=== PATIENT | male | born 1975 | race Caucasian/White ===

== ENCOUNTER → 2018-08-30 08:38 | Outpatient (CLI) | payer OTHER, SELFPAY ==
--- NOTE | 2018-08-30 08:50 | RAD_ITS ---
STUDY: X-RAY CHEST REASON FOR EXAM: Male, 42 years old. Bronchitis, cough. TECHNIQUE: PA and lateral views of the chest. COMPARISON: None. FINDINGS: The lungs are clear and expanded. There is no demonstrated pleural abnormality. Normal size heart. Normal mediastinum and qing. Normal visualized pulmonary arteries. Normal visualized aortic arch and descending thoracic aorta. Normal visualized thoracic spine. Normal visualized ribs, clavicles, and shoulders. There is no demonstrated abnormality of the visualized soft tissue structures of the upper abdomen. RAD/Chest PA and Lateral IMPRESSION: Normal x-ray examination of the chest. Electronically Signed: Issa Somers MD at 10:15 EST , Service support ,
== END ==
PROVIDERS: Family Provider Family Medicine; PCP Family Medicine; Referring Provider Family Medicine; Visit Provider Family Medicine
DX: J40 Bronchitis, not specified as acute or chronic (principal)
CPT/HCPCS: 71046

== ENCOUNTER → 2019-06-19 08:54 | Outpatient (CLI) | payer OTHER, SELFPAY ==
--- NOTE | 2019-06-19 09:03 | RAD_ITS ---
STUDY: X-RAY - ORBITS REASON FOR EXAM: Male, 43 years old. MRI CLEARANCE; -- H/O METAL IN EYES. TECHNIQUE: 2 view(s) of the orbits were obtained. COMPARISON: None. FINDINGS: Normal bilateral orbits without a metallic orbital foreign body. Normal visualized facial bones. Normal paranasal sinuses. The soft tissue structures are unremarkable. RAD/Orbits for Foreign Body IMPRESSION: No demonstrated metallic orbital foreign body. The patient is cleared for an MRI examination. Electronically Signed: Hayden Grimm MD at 10:58 EDT Tel , Service support ,
--- NOTE | 2019-06-19 09:06 | MRI_ITS ---
STUDY: MRI LEFT SHOULDER REASON FOR EXAM: Male, 43 years old. Left shoulder pain, chronic. TECHNIQUE: Standardized fat and water weighted pulse sequences were obtained in all 3 orthogonal planes. COMPARISON: None. FINDINGS: High-grade partial to full-thickness articular surface insertional tear of the posterior supraspinatus and anterior infraspinatus tendons measuring 1.3 cm AP by 0.3 cm transversely. Normal subscapularis tendon. Normal teres minor tendon. Visualized muscles of the rotator cuff are intact. Marrow signal shows no fracture, bone contusion, or osteonecrosis. No joint effusion. Normal biceps labral complex. Normal intracapsular long biceps tendon. Normal labrum. Normal acromioclavicular articulation. There is a Type II morphology (curved), with a neutral orientation. There is no subacromial-subdeltoid bursal fluid. Normal visualized coracohumeral and coracoacromial ligaments. MRI/Upper Ext Joint Only(Routine) IMPRESSION: 1. High-grade partial to full-thickness supraspinatus and infraspinatus tendon tears. Electronically Signed: Connie Jimenez MD at 23:13 EDT Tel , Service support ,
== END ==
PROVIDERS: Family Provider Family Medicine; PCP Family Medicine; Referring Provider Specialist; Visit Provider Specialist
DX: M25.512 Pain in left shoulder (principal); R53.1 Weakness; S46.012A Strain of muscle(s) and tendon(s) of the rotator cuff of left shoulder, initial encounter
CPT/HCPCS: 70030; 73221

== ENCOUNTER → 2020-03-25 | Outpatient (CLI) | payer OTHER, SELFPAY ==
--- NOTE | 2020-03-25 16:38 | CT_ITS ---
STUDY: CT MAXILLOFACIAL SINUSES REASON FOR EXAM: Male, 44 years old. KNOWN POLYPS/CAN''T TASTE OR SMELL X 3 WEEKS RADIATION DOSAGE (If Supplied By Facility): CTDIvol = ( 33.45 ) mGy, DLP = ( 834.91 ) mGycm TECHNIQUE: The patient was scanned in a multi detector CT scanner. High resolution axial imaging was performed without the administration of intravenous contrast material. Sagittal and coronal images were reconstructed. Individualized dose optimization techniques were used for this CT. COMPARISON: None. FINDINGS: FRONTAL SINUSES: Near complete opacification of the frontal sinuses. ETHMOIDAL SINUSES: Near complete opacification of the bilateral ethmoid air cells MAXILLARY SINUSES: Near complete opacification of the maxillary sinuses. Small amount of aeration in the center of the left maxillary sinus. SPHENOIDAL SINUSES: Near complete opacification. There is occlusion of the bilateral maxillary infundibuli with normal uncinate processes, ethmoid bullae, and hiatus semilunaris. Normal bilateral middle turbinates. Normal bilateral inferior turbinates. Normal midline nasal septum. There is patency of the bilateral nasal airways. The visualized osseous structures are normal. The visualized bilateral orbital contents are normal. CT/Sinus/Facial Bone IMPRESSION: Almost complete soft tissue opacification of all of the paranasal sinuses. Findings are most consistent with severe chronic sinusitis. Polyps cannot be differentiated or excluded. Electronically Signed: Braxton Jones MD at 22:43 EDT , Service support ,
== END | disposition home or self-care (01) ==
LOC: CT 16:37
PROVIDERS: PCP Family Medicine; Referring Provider Otolaryngology; Visit Provider Otolaryngology
DX: J32.9 Chronic sinusitis, unspecified (principal)
CPT/HCPCS: 70486

== ENCOUNTER 2020-04-19 10:05 | Day surgery (SDC) | payer OTHER, SELFPAY ==
[2020-04-19] VITALS (8 sets, daily range): BP systolic 133–163; BP diastolic 85–106; PULSE 61–70; RESP 16; TEMP 35.9–36.9; O2SAT 99–100; BMI 27.4
[2020-04-19] MEDS: Lactated Ringers 1,000 ML 100 ML IV ×2 (10:48→13:40)
--- NOTE | 2020-04-19 11:30 | ETH_PTH ---
PATIENT: SANDHYA LESTER LOC: [facility] [place] U#:[id number] AGE/SX: 44/M ROOM: RE04/19/[address]: Dr. Lam Segundo MD : 1975 BED: DIS: 04/19/2020 SPEC #: [id number] RECD: 04/19/20 13:48 STATUS: AILYN JOE #: [id number] NANETTE: 04/19/20 11:[address]: Lam Segundo DEPT: SURGICAL PATHOLOGY RECD BY: Rodriguez Brooks ENTERED: 04/20/20 08:28 SP TYPE: ETH TISS OTHR DR: Dr. Keenan Pantoja MD Tissues: A - Ethmoid sinus, NOS B - Ethmoid sinus, NOS Procedures: Decalcification bone/plaque Surgery Specimen Level IV HEADER OPERATION: Functional endoscopic sinus surgery, Navigation PRE-OP DIAGNOSIS: Acute recurrent pansinusitis, allergic rhinitis TISSUE SUBMITTED: A - Left ethmoid and maxillary sinus contents, B - Right ethmoid and maxillary sinus contents MICROSCOPIC DIAGNOSIS A. Left ethmoid and maxillary sinus contents: Fragments of respiratory mucosa with chronic inflammation and bone. B. Right ethmoid and maxillary sinus contents: Fragments of respiratory mucosa with chronic inflammation and bone. SJ:rg 04/25/20 MICROSCOPIC DESCRIPTION Slides are reviewed. GROSS DESCRIPTION A - Received in fixative is one container labeled with the patient's name and designated left ethmoid and maxillary sinus contents. The specimen consists of multiple fragments of hemorrhagic soft tissue mixed with mucoid tissue that in aggregate measure 7 x 5 x 2 cm. Also present in the container is a polypoid piece of mcgowan soft tissue measuring 2.5 x 2 x 0.7 cm. Also present in the container are multiple pieces of mucosal tissue mixed with fragments of bone measuring in aggregate 3 x 2.5 x 0.3 cm. [employer] sections are submitted in three cassettes as follows: 1 - polypoid piece of tissue, bisected, entirely submitted, 2 - mucosal tissue fragments of bone after decalcification, 3 - hemorrhagic mucoid tissue. B - Received in fixative is one container labeled with the patient's name and designated right ethmoid and maxillary sinus contents. The specimen consists of multiple fragments of hemorrhagic soft tissue mixed with blood clot that in aggregate measure 6 x 4 x 2 cm. Also present in the container are multiple fragments of mcgowan mucoidy, hemorrhagic soft tissue mixed with polypoid tissue and fragments of bone measuring in aggregate 5 x 4 x 1.5 cm. [employer] sections are submitted in four cassettes as follows: 1 & 2 - polypoid pieces of tissue, 3 - fragments of mucosal tissue and bone after decalcification, 4 - hemorrhagic mucoid tissue mixed with blood clot. / HEIDE:ne 04/20/20 TC:3 CPT: 96234 x2, 57235 x2
[2020-04-19] MEDS: Oxymetazoline 0.05% 1 SPRAY SPRAY.BTL 15 SPRAY (12:00)
--- NOTE | 2020-04-19 13:16 | DCINST_ITS ---
You will use the following diet at home:: No restrictions Discharge Activity: Return to Normal Activity, May not drive while taking narco tic pain medications. Call your doctor if your incision/area has: Sudden Increased Bleeding Additional Dressing/Incision Instructions:: irrigate nose with saline 5-6 times per day. afrin for any significant bleeding. Allergies/Adverse Reactions: Allergies bupropion [From Wellbutrin] Allergy (Verified 04/19/20 10:35) Shortness of breath ZOMBIE LIKE REACTION Medications to take at Discharge Fluticasone 0.05% [Flonase Nasal [place]] 2 spray NASAL DAILY 04/11/20 Fluticasone/Vilanterol [Breo Ellipta 200-25 Mcg INH] 1 ea IH DAILY 04/11/20 Montelukast Sodium [Singulair] 10 mg PO DAILY 04/11/20 Primary Care Physician: Keenan Pantoja MD [Primary Care Provider] - Test Results: Test results from this visit will be discussed in further detail at your follow- up appointment, if applicable. Please Follow Up With: Jann Segundo MD When: 1 week
--- NOTE | 2020-04-19 13:18 | PCM.OPRPT ---
Problem List (1) Chronic pansinusitis Status: Chronic (2) Polyp of both nasal cavities Status: Chronic Report of Operation Date of Procedure: 04/19/20 Pre-Operative Diagnosis: 1. chronic pansinusitis. 2. sinonasal polyposis Post-Operative Diagnosis: 1. chronic pansinusitis. 2. sinonasal polyposis Surgery/Procedure Performed:: 1. endoscopic maxillary antrostomy with removal of contents, right and left. 2. endoscopic total ethmoidectomy, sphenoidotomy with removal of contents, right and left. 3. endoscopic frontal sinus exploration with removal of contents, right and left. 4. extensive removal of polyps, right and left. 5. CT guided image navigation Type of Anesthesia:: General Description of Procedure: on the day of the procedure, after appropriate informed consent was obtained, the patient was brought to the operating room and placed in supine position on the operating table. he was placed under general endotracheal anesthesia by the anesthesiologist. the endotracheal tube was secured, the eyes were lubricated. the image guidance navigation was set up and accuracy confirmed. the left nasal cavity was decongested with oxymetazoline-soaked pledgets. the superior attachment of the middle turbinate and uncinate process were injected with lidocaine/epinephrine. the middle turbinate was medialized and pledgets were placed in the middle meatus. extensive polyps were removed from the middle meatus using the microdebrider. the maxillary sinus was entered with an olive tip suction and an impressive amount of purulent and fungal material was evacuated from the maxillary sinus. the antrostomy was completed with a back biter and a kathy cut. the ethmoid bulla was entered bluntly with a suction. a total ethmoidectomy was performed with an upgoing blakesley and the microdebrider. extensive polyps were removed from this area. this was taken superiorly to the skull base and laterally to the lamina. a stankewicz maneuver was performed and no laminar defect was noted. a frontal sinus seeker was used in the frontal recess and contents were evacuated. polyps were removed. the natural sphenoid os was widened with the microdebrider. polyps were removed. hemostasis was achieved with suction electrocautery and michael powder was used. the right nasal cavity was decongested with oxymetazoline-soaked pledgets. the superior attachment of the middle turbinate and uncinate process were injected with lidocaine/epinephrine. the middle turbinate was medialized and pledgets were placed in the middle meatus. extensive polyps were removed from the middle meatus using the microdebrider. the maxillary sinus was entered with an olive tip suction and an impressive amount of purulent and fungal material was evacuated from the maxillary sinus. the antrostomy was completed with a back biter and a kathy cut. the ethmoid bulla was entered bluntly with a suction. a total ethmoidectomy was performed with an upgoing blakesley and the microdebrider. extensive polyps were removed from this area. this was taken superiorly to the skull base and laterally to the lamina. a stankewicz maneuver was performed and no laminar defect was noted. a frontal sinus seeker was used in the frontal recess and contents were evacuated. polyps were removed. the natural sphenoid os was widened with the microdebrider. polyps were removed. hemostasis was achieved with suction electrocautery and michael powder was used. an orogastric tube was placed and contents were evacuated. the patient was brought out of general anesthesia by the anesthesiologist. he was transferred to the PACU in stable condition.
[2020-04-19] MEDS: HYDROcodone Bitartrate/Apap 5/325 Tablet PO (14:41)
== END 2020-04-19 15:15 | disposition short-term general hospital (02) ==
LOC: SDC 10:06 → AC 10:09
PROVIDERS: Anesthesiology; PCP Family Medicine; Referring Provider Otolaryngology; Visit Provider Otolaryngology
PROC: (CPT 31253; principal; 2020-04-19 11:10)
DX: J01.41 Acute recurrent pansinusitis (principal); J32.4 Chronic pansinusitis; J33.0 Polyp of nasal cavity; J45.909 Unspecified asthma, uncomplicated; Z11.59 Encounter for screening for other viral diseases; Z87.891 Personal history of nicotine dependence; Z79.899 Other long term (current) drug therapy
CPT/HCPCS: 00160; 31253; 31259; 31267; 87635; 88305; 88311; 94799; J7120; J2405; U0003

== ENCOUNTER → 2020-05-09 | Outpatient (CLI) | payer OTHER, SELFPAY ==
[2020-04-19 10:35] VITALS: BMI 27.4
== END | disposition home or self-care (01) ==
LOC: LABSPEC 15:17
PROVIDERS: PCP Family Medicine; Referring Provider Otolaryngology; Visit Provider Otolaryngology
DX: J32.9 Chronic sinusitis, unspecified (principal)
CPT/HCPCS: 87070; 87077; 87186; 87205